=== PATIENT | male | born 1995 | race Hispanic/Latino ===

== ENCOUNTER 2016-12-01 20:39 | Emergency (ER) | payer SELFPAY ==
[~2016-12-01] VITALS: Ht 170.2 cm; Wt 79.5 kg
[2016-12-01 20:46] VITALS: BP 158/94; PULSE 117; RESP 18; O2SAT 98
[2016-12-01 21:42] LABS: BASOPHILS % (AUTO) 0.3 % (0-3); EOSINOPHILS % (AUTO) 0.9 % (0-5); MONOCYTES % (AUTO) 6.7 % (4-12); Mean Corpuscular Hemoglobin 30.2 pg (27.0-35.0); Mean Corpuscular Volume 85.3 fL (81-100); NEUTROPHILS % (AUTO) 79.8 % (40-74); Platelet Count 344 bil/L (150-400)
[2016-12-01 22:03] LABS: TROPONIN T 0.01 ug/L (0.0-0.011)
[2016-12-01 22:18] VITALS: BP 158/94; PULSE 117; RESP 18; O2SAT 98
[2016-12-01 22:23] LABS: Magnesium 1.9 mg/dL (1.6-2.6)
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
[2016-12-01 23:18] VITALS: BP 158/94; PULSE 117; RESP 18; O2SAT 98
== END 2016-12-01 23:19 | disposition home or self-care (01) ==
LOC: SED 20:39
DX: R00.2 Palpitations (principal); R51 Headache; R25.1 Tremor, unspecified; Z87.828 Personal history of other (healed) physical injury and trauma